=== PATIENT | female | born 1930 | race Caucasian/White ===

== ENCOUNTER 2017-10-17 12:42 | Inpatient (IN) | payer OTHER, MEDICARE ==
[~2017-10-17] VITALS: Ht 152.4 cm; Wt 56.2 kg
[2017-10-17] VITALS (11 sets, daily range): BP systolic 134–158; BP diastolic 58–82
[2017-10-17] MEDS ORDERED: LEVOTHYROXINE75 MCG PO (13:01)
[2017-10-17] MEDS ORDERED: ASPIRIN81 M2 PO (13:01)
[2017-10-17] MEDS ORDERED: LISINOPRIL-HCT1 EACH PO (13:01)
[2017-10-17] MEDS ORDERED: VITAMIN B122500 MC1 PO (13:02)
[2017-10-17] MEDS ORDERED: WELCHOL625 MG PO (13:02)
[2017-10-17] MEDS ORDERED: VITAMIN D32000 UNI1 PO (13:02)
[2017-10-17] MEDS ORDERED: ZANTAC150 MG PO (13:03)
[2017-10-17 13:58] LABS: HEMATOCRIT 18.9 % (36.0-46.0); MCH 22.1 PG (29.0-34.0); MCHC 30.7 G/DL (30.0-36.0); MCV 72.1 FL (83-99); RBC DIS.WIDTH-SD 43.9 % (39-53); RED BLOOD COUNT 2.62 M/uL (3.80-5.20); WHITE BLOOD COUNT 6.6 K/uL (4.1-10.2)
[2017-10-17 13:59] LABS: HEMOGLOBIN 5.8 G/DL (11.9-15.5)
[2017-10-17 14:03] LABS: APPEARANCE CLEAR ((CLEAR)); BILIRUBIN NEGATIVE; BLOOD NEGATIVE; COLOR YELLOW ((YELLOW)); GLUCOSE (STRIP) NEGATIVE; KETONES NEGATIVE; LEUKOCYTES NEGATIVE; NITRITE NEGATIVE; PROTEIN (STRIP) NEGATIVE; SPECIFIC GRAVITY 1.009 (1.000-1.030); UCUL ADDED? NO; UROBILINOGEN 0.2 MG/DL (0.2-1.0)
[2017-10-17 14:13] LABS: TROP-I INTERPRETATION NEGATIVE; TROPONIN-I 0.01 ng/mL (0.0-0.30)
[2017-10-17] MEDS ORDERED: TYLENOL EXTRA500 MG PO (14:27)
[2017-10-17] MEDS ORDERED: VISINE DRY EYE15 ML BOTH EYES (14:27)
[2017-10-17 14:29] LABS: CHLORIDE 106 MEQ/L (99-109); POTASSIUM 4.2 MEQ/L (3.7-5.4); SODIUM 139 MEQ/L (136-147)
[2017-10-17 14:30] LABS: PLAT.SUFFICIENCY ADEQUATE; PLATELET CLUMPS PRESENT - PLATELET COUNT APPEARS ADEQUATE
[2017-10-17 14:35] LABS: CREATININE 0.8 MG/DL (0.6-1.3); GFR ESTIMATE (CALCULATED) > 59 mL/min/; GLUCOSE 92 mg/dL (70-99); UREA NITROGEN (BUN) 14 mg/dL (9-23)
[2017-10-17 14:59] LABS: PLATELET COUNT UNABLE TO REPORT K/uL (156-360)
[2017-10-18 00:43] VITALS: BP 148/78
[2017-10-18 02:02] LABS: HEMATOCRIT 33.6 % (36.0-46.0)
[2017-10-18 02:03] LABS: HEMOGLOBIN 11.2 G/DL (11.9-15.5); MCV 76.7 FL (83-99)
[2017-10-18 07:38] VITALS: BP 100/60
[2017-10-18] MEDS ORDERED: PROTONIX40 MG PO (08:12)
[2017-10-18 09:17] LABS: HEMATOCRIT 34.4 % (36.0-46.0); HEMOGLOBIN 11.1 G/DL (11.9-15.5); HEMOGLOBIN 11.2 G/DL (11.9-15.5); MCH 25.2 PG (29.0-34.0); MCH 25.3 PG (29.0-34.0); MCHC 32.3 G/DL (30.0-36.0); MCHC 32.6 G/DL (30.0-36.0); MCV 77.7 FL (83-99); MCV 78.2 FL (83-99); RBC DIS.WIDTH-CV 18.2 % (11.8-14.6); RBC DIS.WIDTH-SD 50.4 % (39-53); RBC DIS.WIDTH-SD 51.5 % (39-53); RED BLOOD COUNT 4.43 M/uL (3.80-5.20); WHITE BLOOD COUNT 8.1 K/uL (4.1-10.2); WHITE BLOOD COUNT 8.5 K/uL (4.1-10.2)
[2017-10-18 09:26] LABS: ALBUMIN 3.6 G/DL (3.2-4.8); ALKALINE PHOSPHATASE 63 IU/L (3-129); ALT (GPT) 6 IU/L (3-49); CHLORIDE 104 MEQ/L (99-109); CREATININE 0.8 MG/DL (0.6-1.3); GFR ESTIMATE (CALCULATED) > 59 mL/min/; GLUCOSE 109 mg/dL (70-99); POTASSIUM 4.1 MEQ/L (3.7-5.4); SODIUM 137 MEQ/L (136-147); TOTAL PROTEIN 6.6 G/DL (6.4-8.3); UREA NITROGEN (BUN) 10 mg/dL (9-23)
[2017-10-18 09:29] LABS: AST (GOT) 14 IU/L (2-34); TOTAL BILIRUBIN 0.9 MG/DL (0.0-1.0)
[2017-10-18 09:34] LABS: PLAT.SUFFICIENCY ADEQUATE; PLATELET CLUMPS PRESENT - PLATELET COUNT APPEARS ADEQUATE; PLATELET COUNT UNABLE TO REPORT K/uL (156-360)
[2017-10-18 09:35] LABS: PLAT.SUFFICIENCY ADEQUATE; PLATELET CLUMPS PRESENT - PLATELET COUNT APPEARS ADEQUATE; PLATELET COUNT UNABLE TO REPORT K/uL (156-360)
[2017-10-18 09:40] VITALS: BP 11/82
== END 2017-10-18 10:11 | disposition home or self-care (01) | DRG 812 ==
LOC: EME 12:42 → EDOF 14:43 → ENRESERV 14:44 → 5SOUTH 15:34
PROVIDERS: Emergency Medicine; Internal Medicine
PROC: 30233N1 Transfusion of Nonautologous Red Blood Cells into Peripheral Vein, Percutaneous Approach (ICD-10-PCS; principal; 2017-10-17)
DX: D62 Acute posthemorrhagic anemia (principal); Z66 Do not resuscitate; K92.2 Gastrointestinal hemorrhage, unspecified; I10 Essential (primary) hypertension; K21.9 Gastro-esophageal reflux disease without esophagitis; F03.90 Unspecified dementia, unspecified severity, without behavioral disturbance, psychotic disturbance, mood disturbance, and anxiety; K58.9 Irritable bowel syndrome, unspecified; E86.0 Dehydration; E03.9 Hypothyroidism, unspecified; Z80.3 Family history of malignant neoplasm of breast; Z80.41 Family history of malignant neoplasm of ovary; Z82.49 Family history of ischemic heart disease and other diseases of the circulatory system; Z79.82 Long term (current) use of aspirin; Z90.710 Acquired absence of both cervix and uterus
CPT/HCPCS: 36415; 80048; 80053; 80061; 81003; 82043; 82570; 82607; 83036; 84443; 84484; 85014; 85018; 85025; 85027; 86850; 86900; 86901; 86920; 93005; 99281; 99285; C9113; J1940; P9016